=== PATIENT | female | born 1950 | race Two or more races ===

== ENCOUNTER 2024-10-13 07:25 | Day surgery (SDC) | payer MEDICARE, SELFPAY ==
[2024-10-13] VITALS (9 sets, daily range): BP systolic 124–180; BP diastolic 66–98; PULSE 63–76; RESP 14–20; TEMP 36.3–36.9; O2SAT 96–100; BMI 29.6
[2024-10-13] MEDS: SODIUM CHLORIDE 0.9% 500 ML 500 ML 20 ML IV (09:15)
[2024-10-13] MEDS: DiphenhydrAMINE INJ 50 MG/ML VIAL 25 MG IVP (09:16)
[2024-10-13] MEDS: MIDAZOLAM INJ 1 MG/ML VIAL 2 ML (ASD USE ONLY) 2 MG IVP (09:20)
[2024-10-13] MEDS: fentaNYL CIT INJ 50 mCg/ML AMP 2ML (ASD USE ONLY) IVP (09:20)
--- NOTE | 2024-10-13 09:55 | SUR.PHASEII ---
0931: Pt received for recovery via [employer]. Report from Debora NUNES. Pt very sleepy. Is arousable with eye opening then immdiately drift back to sleep. Resp even, unlabored. VS stable. No c/o pain, discomfort.
--- NOTE | 2024-10-13 10:20 | SUR.PHASEII ---
1010: Pt more awake, alert. VS stable. Pt sitting up tolerating po fluids with no difficulty swallowing and no n/v. at bedside.
--- NOTE | 2024-10-13 10:44 | SUR.PHASEII ---
1023: Pt fully awake, oriented x3. VS stable. Pt dressed and assisted to restroom. Ambulation steady. Pt and stated understanding of discharge instructions. Pt discharged from [facility] in stable condition.
== END 2024-10-13 10:23 | disposition home or self-care (01) ==
PROVIDERS: PCP Specialist; Referring Provider Specialist; Visit Provider Specialist
PROC: 0DBE8ZX Excision of Large Intestine, Via Natural or Artificial Opening Endoscopic, Diagnostic (ICD-10-PCS; CPT 45380; principal; 2024-10-13 08:30)
DX: Z12.11 Encounter for screening for malignant neoplasm of colon (principal); D12.8 Benign neoplasm of rectum; K64.9 Unspecified hemorrhoids; K57.30 Diverticulosis of large intestine without perforation or abscess without bleeding; E78.5 Hyperlipidemia, unspecified
CPT/HCPCS: 45380; J1200; J2250; J3010; J7040

== ENCOUNTER → 2024-11-11 | Outpatient (CLI) | payer MEDICARE, SELFPAY ==
--- NOTE | 2024-11-11 14:45 | XR_ITS ---
Examination: Screening digital mammography, bilateral Computer aided detection 3-D breast Tomosynthesis, bilateral Date and time of exam: November 11, 2024 1418 hours Indication: Screening Technique: Nonmagnified MLO, CC views of the breasts to been obtained, reconstructed from 3-D Tomosynthesis images. R2 computer aided detection program utilized for evaluation of suspicious masses and/or abnormal calcifications. 3-D Tomosynthesis images obtained. Findings: The breasts are heterogeneously dense, which may obscure small masses 26 mm focal asymmetry 12:00 position right breast 4 mm circumscribed nodule upper outer left breast Impression: BI-RADS Category 0: Incomplete. Need additional imaging evaluation Recommend follow-up spot tomographic views 26 mm focal asymmetry 12:00 position right breast and 4 mm circumscribed nodule upper outer left breast, also bilateral breast sonography follow-up
== END | disposition home or self-care (01) ==
LOC: CDIM 14:09
PROVIDERS: Referring Provider Specialist; Visit Provider Specialist
DX: Z12.31 Encounter for screening mammogram for malignant neoplasm of breast (principal); N63.21 Unspecified lump in the left breast, upper outer quadrant; N64.89 Other specified disorders of breast; R92.333 Mammographic heterogeneous density, bilateral breasts
CPT/HCPCS: 77063; 77067

== ENCOUNTER → 2024-12-12 | Outpatient (CLI) | payer MEDICARE, SELFPAY ==
--- NOTE | 2024-12-12 09:13 | XR_ITS ---
Examination: Diagnostic digital mammography, bilateral Computer aided detection 3-D breast Tomosynthesis, bilateral Date and time of exam: December 12, 2024, 0918 hours INDICATIONS: Mammogram November 11, 2024 26 mm focal asymmetry 12:00 position right breast, 4 mm circumscribed nodule upper outer left breast Technique: Nonmagnified MLO, CC views of the breasts to been obtained, reconstructed from 3-D Tomosynthesis images. R2 computer aided detection program utilized for evaluation of suspicious masses and/or abnormal calcifications. 3-D Tomosynthesis images obtained. Findings: The breasts are heterogeneously dense, which may obscure small masses Spot compression views do confirm 26 mm focal asymmetry 12:00 position right breast and 4 mm circumscribed nodule upper outer left breast Impression: BI-RADS Category 0: Incomplete: Need additional imaging evaluation Bilateral breast sonography follow-up is needed.
== END | disposition home or self-care (01) ==
LOC: CDIM 09:10
PROVIDERS: Referring Provider Specialist; Visit Provider Specialist
DX: R92.8 Other abnormal and inconclusive findings on diagnostic imaging of breast (principal)
CPT/HCPCS: 77062; 77066; G0279

== ENCOUNTER → 2025-03-24 | Outpatient (CLI) | payer MEDICARE, SELFPAY ==
--- NOTE | 2025-03-24 11:30 | XR_ITS ---
Examination: Breast ultrasound complete, bilateral Date and time of exam: March 24, 2025, 1151 hours INDICATIONS: Mammogram December 13, 1999 2526 mm focal asymmetry 12 o'clock position right breast, 4 mm circumscribed nodule upper outer left breast Technique: Real-time grayscale ultrasonographic imaging bilateral breasts, including all 4 quadrants as well as nipple retroareolar and axillary regions. Findings: Sonographic images right breast No cystic or solid mass Sonographic images left breast 3:00 intramammary lymph node 4 x 5 mm IMPRESSION: BI-RADS Category 2: Benign findings
== END | disposition home or self-care (01) ==
LOC: CDIM 11:26
PROVIDERS: PCP Specialist; Referring Provider Specialist; Visit Provider Specialist
DX: R92.8 Other abnormal and inconclusive findings on diagnostic imaging of breast (principal)
CPT/HCPCS: 76641